=== PATIENT | female | born 1970 | race Caucasian/White ===

== ENCOUNTER 2017-04-15 06:28 | Day surgery (SDC) | payer OTHER ==
[~2017-04-15] VITALS: Ht 154.9 cm; Wt 48.2 kg
[~2017-04-15 06:28] MED LIST: LORazepam 2 MG/ML VIAL IVP PRN; SERT100T12 PO
[2017-04-15] MEDS ORDERED: SODIUM CHLORIDE 0.9% 1,000 ML IV ONE ×2 (06:42→07:00)
[2017-04-15] MEDS ORDERED: VANCOMYCIN HCL 1 GM/D5% WATER 200 ML IV ONE (07:00)
[2017-04-15] MEDS ORDERED: FentaNYL CITRATE-PF 100 MCG/2 ML VIAL ONE (07:33)
[2017-04-15] MEDS ORDERED: FLUMAZENIL 0.1 MG/ML 5 ML VIAL IVP ONE (07:34)
[2017-04-15] MEDS ORDERED: LIDOCAINE HCL/PF 1% 30 ML VIAL ONE ×2 (07:34→09:12)
[2017-04-15] MEDS ORDERED: NALOXONE HCL 0.4 MG/ML VIAL ONE (07:34)
[2017-04-15] MEDS ORDERED: MIDAZOLAM HCL 2 MG/2 ML VIAL ONE (07:34)
[2017-04-15] MEDS ORDERED: MIDAZOLAM HCL 2 MG/2 ML VIAL IVP ONE (09:06)
[2017-04-15] MEDS ORDERED: FentaNYL CITRATE-PF 100 MCG/2 ML VIAL IVP ONE (09:06)
[2017-04-15] MEDS ORDERED: ONDANSETRON HCL 4 MG/2 ML VIAL ONE (09:22)
[2017-04-15] MEDS ORDERED: ONDANSETRON HCL 4 MG/2 ML VIAL IVP ONE (09:22)
[2017-04-15] MEDS ORDERED: SODIUM CHLORIDE 0.9% 1,000 ML IV SCH ×2 (09:46→10:46)
[2017-04-15] MEDS ORDERED: HYDROmorphone 2 MG/ML SYRINGE IVP PRN (10:00)
[2017-04-15] MEDS ORDERED: HYDROmorphone HCL 2 MG TABLET PO ONE (10:00)
== END 2017-04-15 11:15 | disposition home or self-care (01) ==
LOC: SDS 06:28 → EDSTATUS 09:00 → SDS 11:15
PROVIDERS: ATTEND Radiology Diagnostic Radiology
DX: C50.912 Malignant neoplasm of unspecified site of left female breast (principal); Z88.8 Allergy status to other drugs, medicaments and biological substances; Z88.1 Allergy status to other antibiotic agents; Z80.42 Family history of malignant neoplasm of prostate; Z82.49 Family history of ischemic heart disease and other diseases of the circulatory system
CPT/HCPCS: 19105; 99152; 99153; C2618; J2250; J2310; J2405; J3010; J3370; J3490 ×2; J7030